=== PATIENT | male | born 1970 | race Caucasian/White ===

== ENCOUNTER 2018-04-13 10:26 | Day surgery (SDC) | payer MEDICARE, BC ==
[2018-04-13] MEDS ORDERED: FENTANYL PF 100MCG/2ML VIAL IV ONE (10:27)
[2018-04-13] MEDS ORDERED: PROPOFOL 10 MG/ML VIAL IV ONE (10:27)
[2018-04-13] MEDS ORDERED: LIDOCAINE 2% MDV (20MG/ML) 20ML VIAL IV ONE (10:27)
--- NOTE | 2018-04-13 17:00 | Operative Note ---
DATE OF SURGERY: 04/13/2018 REFERRING PROVIDER: Sylvia Zavaleta MD, FACP PREOPERATIVE DIAGNOSIS: Dysphagia. POSTOPERATIVE DIAGNOSIS: Normal upper endoscopy. OPERATION: ESOPHAGOGASTRODUODENOSCOPY. PROCEDURE: After informed consent was obtained, the patient's family, he was placed in the left lateral decubitus position in the endoscopy suite, sedated and monitored by the Department of Anesthesia. Once sedated, a well-lubricated [id number] gastroscope was placed in the posterior oropharynx and under direct visualization passed to the proximal esophagus. The endoscope was advanced to the proximal, mid and distal esophagus. The esophagus, GE junction, gastric body, antrum, pylorus, duodenal bulb and sweep were unremarkable. J-turn views of the proximal stomach were unremarkable. The endoscope was then straightened and retracted from the patient with no new findings or abnormalities identified. There were no obvious oropharyngeal lesions that were seen. RECOMMENDATIONS: I would suggest the patient undergo a video swallowing exam to evaluate his functional swallowing. As always, thank you for allowing me to participate in the health care of your patients. CC: SYLVIA ZAVALETA MD, FACP [facility]
== END 2018-04-13 11:50 | disposition home or self-care (01) ==
LOC: HOP 10:26
PROVIDERS: ATTEND Internal Medicine Gastroenterology
DX: R13.10 Dysphagia, unspecified (principal)
CPT/HCPCS: 43235; 00731; J3010